=== PATIENT | female | born 1985 | race Caucasian/White ===

== ENCOUNTER 2020-08-07 16:08 | Emergency (ER) | payer MEDICAID ==
[2020-08-07 17:44] VITALS: BP 126/88
--- NOTE | 2020-08-07 18:43 | ED Physician Documentation ---
History of Present Illness - Stated complaint Stated Complaint: FEVER, BODY ACHES - Chief complaint Chief Complaint: General - Additonal information Additional information: 34-year-old female presents emergency department requesting COVID-19 screening. She does work at a [employer]. She reports that for 2 days she has had subjective fevers, mild body aches sore throat and congestion. She denies cough. Non-smoker. No history of asthma. Takes no prescribed medications. She is here with her partner seeking similar. Review of Systems Constitutional: reports: Fever, Chills, Fatigue Eyes: reports: Reviewed and negative Ears: reports: Reviewed and negative Nose: reports: Rhinorrhea / runny nose, Congestion Throat: reports: Sore throat Cardiac: reports: Reviewed and negative Respiratory: denies: Dyspnea, Cough GI: reports: Reviewed and negative : reports: Reviewed and negative Skin: reports: Reviewed and negative PD PAST MEDICAL HISTORY - Past Medical History Past Medical History: No Cardiovascular: None Respiratory: None Neuro: None Endocrine/Autoimmune: None GI: None SALES PLANNING COORDINATOR: None : None HEENT: None Psych: Depression, Anxiety, Bipolar disorder, Panic attacks Musculoskeletal: None Derm: None - Past Surgical History Past Surgical History: Yes General: Appendectomy, Colonoscopy HEENT: Tonsil/Adenoidectomy - Present Medications Home Medications: Ambulatory Orders Medication Instructions Recorded Confirmed No Known Home Medications 08/07/20 08/07/20 - Allergies Allergies/Adverse Reactions: Allergies Allergy/AdvReac Type Severity Reaction Status Date / Time No Known Drug Allergies Allergy Verified 08/07/20 16:16 - Social History Does the pt smoke?: No Smoking Status: Never smoker Does the pt drink ETOH?: No Does the pt have substance abuse?: Yes Substance Use and Type: Marijuana - Immunizations Immunizations are current?: Yes - POLST Patient has POLST: No PD ED PE NORMAL - General General: Alert and oriented X 3, No acute distress - HEENT HEENT: PERRL, Moist mucous membranes, Pharynx benign - Neck Neck: Supple, no meningeal sign, No adenopathy - Cardiac Cardiac: RRR, No murmur - Respiratory Respiratory: No respiratory distress, Clear bilaterally - Abdomen Abdomen: Normal bowel sounds Results - Vitals Vitals: Vital Signs - 24 hr 08/07/20 08/07/20 16:16 17:44 Temperature 37.2 C 36.9 C Heart Rate 93 84 Respiratory 18 19 Rate Blood Pressure 135/115 H 126/88 H O2 Saturation 99 99 Oxygen O2 Source Room air PD MEDICAL DECISION MAKING - ED course Complexity details: considered differential, d/w patient ED course: This is a well-appearing 34-year-old female presents emergency department requesting COVID-19 screening. She has had 2 days of cough subjective fevers body aches and chills. 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 Screening is pending. Patient is advised to remain in quarantine until the results are known. Unremarkable cardiopulmonary auscultation. No hypoxia. Emergent return precautions discussed Departure - Departure Disposition: 01 Home, Self Care Clinical Impression: Upper respiratory disease, Encounter for screening laboratory testing for COVID-19 virus Condition: Stable Record reviewed to determine appropriate education?: Yes Comments: You have a Covid test pending. You need to self quarantine until the result is done and negative. Do not leave your house. Do not get near anybody. The results should be done in 48 to 72 hours. We will call with a positive result, the fastest way to get a negative result for confirmation though is to go to the hospital website at [email or web address], click on the my [facility] tab and sign up for the patient portal. If any friends or family get sick and would like to have a Covid test done, but do not have signs or symptoms that would necessitate being hospitalized, we encourage testing through our coronavirus swabbing station, call [phone] to schedule an appointment. It is okay to take any [id number] cough supplement such as Robitussin or decongestants such as Sudafed. Drink lots of fluids and get plenty of rest. If at any point you develop difficulty breathing, have any fainting episodes or racing heart rate please return immediately to the ER
== END 2020-08-07 19:24 | disposition home or self-care (01) ==
LOC: ED 16:08
DX: J06.9 Acute upper respiratory infection, unspecified (principal); Z20.828 Contact with and (suspected) exposure to other viral communicable diseases
CPT/HCPCS: 99283; 99284

== ENCOUNTER 2020-10-16 01:50 | Emergency (ER) | payer MEDICAID ==
--- NOTE | 2020-10-16 02:02 | ED Physician Documentation ---
PD HPI NVD - Stated complaint Stated Complaint: N/V - Chief complaint Chief Complaint: Abd Pain - History obtained from History obtained from: Patient - History of Present Illness Timing - onset: How many weeks ago (She states she has been having related nausea and vomiting for couple of months, more notable the past 1-2 weeks. Now the past few days has been unable to keep much down at all and feeling dehydrated. Concentrated urine. General weak. No vag bleeding.) Timing - duration: Weeks (many weeks of nausea and vomiting, worse the past week/days) Timing - details: Gradual onset, Still present, Waxing and waning Associated symptoms: No: Fever, Abdominal pain, Chest pain Contributing factors: Other (11 weeks ). No: Sick contact, Bad food, Diabetes Improved by: No: Vomiting Worsened by: Eating Similar symptoms before: Diagnosis (hyperemesis gravidarum) Recently seen: Clinic (confirmed at clinic and had U/S showing IUP. started on vitamins. Has not seen CLINICAL RESEARCH SCIENTIST yet.) Review of Systems Constitutional: denies: Fever Nose: denies: Rhinorrhea / runny nose, Congestion Throat: denies: Sore throat Respiratory: denies: Cough GI: reports: Nausea, Vomiting. denies: Abdominal Pain, Diarrhea Skin: denies: Rash, Lesions Musculoskeletal: reports: Back pain (left low back). denies: Neck pain Neurologic: reports: Generalized weakness. denies: Near syncope PD PAST MEDICAL HISTORY - Past Medical History Cardiovascular: None Respiratory: None Neuro: None Endocrine/Autoimmune: None GI: None STATE MANAGER: None : None HEENT: None Psych: Depression, Anxiety, Bipolar disorder, Panic attacks Musculoskeletal: None Derm: None - Past Surgical History Past Surgical History: Yes General: Appendectomy, Colonoscopy HEENT: Tonsil/Adenoidectomy - Present Medications Home Medications: Ambulatory Orders Medication Instructions Recorded Confirmed Ondansetron Odt [Zofran Odt] 4 mg TL Q6H PRN #30 tablet 10/16/20 Pyridoxine HCl (Vitamin B6) [B-6] 200 mg PO DAILY #30 tab 10/16/20 dexAMETHasone [Decadron] 4 mg PO DAILY #7 tablet 10/16/20 - Allergies Allergies/Adverse Reactions: Allergies Allergy/AdvReac Type Severity Reaction Status Date / Time No Known Drug Allergies Allergy Verified 12/23/20 16:16 - Social History Does the pt smoke?: No Smoking Status: Never smoker Does the pt drink ETOH?: No Does the pt have substance abuse?: Yes - Immunizations Immunizations are current?: Yes - POLST Patient has POLST: No PD ED PE NORMAL - Vitals Vital signs reviewed: Yes - General General: Alert and oriented X 3, Well developed/nourished - HEENT HEENT: Pharynx benign. No: Moist mucous membranes - Neck Neck: Supple, no meningeal sign, No adenopathy - Cardiac Cardiac: RRR, No murmur - Respiratory Respiratory: Clear bilaterally - Abdomen Abdomen: Soft, Non tender, Other (bedside U/S showing IUP c/w dates with good FHR. ) - Back Back: No CVA TTP, Other (some muscular tenderness left lower back at SI area. ) - Derm Derm: Normal color Results - Vitals Vitals: Vital Signs - 24 hr 10/16/20 01:57 Temperature 36.8 C Heart Rate 107 H Respiratory 17 Rate Blood Pressure 137/87 H O2 Saturation 100 Oxygen O2 Source Room air - Labs Labs: Laboratory Tests 10/16/20 10/16/20 02:40 03:09 Sodium 133 L Potassium 3.6 Chloride 99 L Carbon Dioxide 23 Anion Gap 11.0 BUN 6 Creatinine 0.5 Estimated GFR (MDRD) 142 Glucose 89 Calcium 9.6 Urine Color YELLOW Urine Clarity HAZY Urine pH 6.0 Ur Specific [place] >=1.030 H Urine Protein NEGATIVE Urine Glucose (UA) NEGATIVE Urine Ketones >=80 H Urine Occult Blood NEGATIVE Urine Nitrite NEGATIVE Urine Bilirubin NEGATIVE Urine Urobilinogen 0.2 (NORMAL) Ur Leukocyte Esterase TRACE H Urine RBC 0-5 Urine WBC 4-5 Ur Squamous Epith Cells MOD Squamous H Urine Bacteria Few Urine Mucus Few Strands Ur Microscopic Review INDICATED Urine Culture Comments NOT INDICATED PD MEDICAL DECISION MAKING - ED course Complexity details: reviewed results, re-evaluated patient (improved with fluids and meds. ), considered differential, d/w patient Departure - Departure Disposition: 01 Home, Self Care Clinical Impression: Hyperemesis gravidarum, Dehydration Qualifiers: Weeks of gestation: 11 weeks Qualified Code(s): Z3A.11 - 11 weeks gestation of Condition: Stable Record reviewed to determine appropriate education?: Yes Instructions: ED Dehydration, ED Preg Morning Sickness Prescriptions: Pyridoxine HCl (Vitamin B6) [B-6] 200 mg PO DAILY #30 tab dexAMETHasone [Decadron] 4 mg PO DAILY #7 tablet Ondansetron Odt [Zofran Odt] 4 mg TL Q6H PRN #30 tablet PRN Reason: Nausea / Vomiting Comments: Small frequent fluids. Try to stay well-hydrated. Pyridoxine/vitamin B6 200 mg daily. Also take Decadron 4 mg daily for the next week. Add ondansetron every 6 hours if needed for nausea. Continue your vitamins. Use Tylenol if needed for pains or cramps. Follow-up with CLINICAL RESEARCH SCIENTIST regarding ongoing care.
[2020-10-16] MEDS ORDERED: DEXAMETHASONE 10 MG/ML VIAL IVP STA (02:20)
[2020-10-16] MEDS ORDERED: FAMOTIDINE 20 MG/2 ML VIAL IVP STA (02:20)
[2020-10-16] MEDS ORDERED: SODIUM CHLORIDE 0.9% 1,000 ML IV STA ×2 (02:20→03:17)
[2020-10-16] MEDS ORDERED: ONDANSETRON 4 MG/2 ML VIAL IVP STA (02:20)
[2020-10-16 03:15] LABS: BILIRUBIN,URINE NEGATIVE (NEGATIVE); GLUCOSE, URINE (UA) NEGATIVE (NEGATIVE); KETONES,URINE (UA) >=80 mg/dL (NEGATIVE); LEUKOCYTE ESTERASE, URINE TRACE (NEGATIVE); NITRITE,URINE NEGATIVE (NEGATIVE); OCCULT BLOOD,URINE NEGATIVE (NEGATIVE); PROTEIN,URINE NEGATIVE (NEGATIVE); UROBILINOGEN,URINE 0.2 (NORMAL) E.U./dL (NORMAL)
[2020-10-16 03:16] LABS: CALCIUM 9.6 mg/dL (8.5-10.3); CREATININE 0.5 mg/dL (0.4-1.0); POTASSIUM 3.6 mmol/L (3.5-5.0)
[2020-10-16 03:24] LABS: BACTERIA,URINE Few /HPF (None Seen); CLARITY,URINE HAZY (CLEAR); RBC,URINE 0-5 /HPF (0-5); SQUAMOUS EPITHELIAL CELL,UR MOD Squamous (<= Few)
[2020-10-16 03:25] LABS: MUCUS,URINE Few Strands
[2020-10-16] MEDS ORDERED: ONDANSETRON ODT 4 MG Prepack 2 TL PRN (03:48)
[2020-10-16 04:20] VITALS: BP 127/79
== END 2020-10-16 04:46 | disposition home or self-care (01) ==
LOC: ED 01:50
DX: O21.1 Hyperemesis gravidarum with metabolic disturbance (principal); E86.0 Dehydration; O99.891 Other specified diseases and conditions complicating pregnancy; M54.5 Low back pain; Z3A.11 11 weeks gestation of pregnancy
CPT/HCPCS: 36415; 80048; 81001; 81003; 87086; 96361; 96374; 96375; 99284